=== PATIENT | male | born 1970 | race Caucasian/White ===

== ENCOUNTER → 2018-08-30 07:16 | Outpatient (CLI) | payer SELFPAY ==
--- NOTE | 2018-08-30 10:34 | NEURO ---
NCS and/or EMG Patient Report Ordering Doctor: Dahiana Holloway DATE OF SERVICE: 08/30/18 This is a right upper extremity EMG and nerve conduction study performed on this 48-year-old male who works as a dedicated intermodal truck driver. He complains of decreased traffic observer in his right hand as well as paresthesias in the fourth and fifth digits of his right hand. He also describes shoulder pain with specific shoulder movements but does not relate worsening of his abnormal hand sensations in association with shoulder pain. He is healthy otherwise without a history of diabetes. Right upper extremity sensory and motor nerve conduction study is performed demonstrating prolonged ulnar distal latency across the elbow with drop in amplitude across the elbow as well as conduction velocity. The ulnar sensory amplitude at the palm is decreased. The median motor and sensory and the radial sensory responses are normal. The ulnar f wave latency is prolonged compared to the median F wave latency. Right upper extremity needle electromyography is performed. Muscles evaluated included the first dorsal interosseous, abductor pollicis brevis, brachioradialis, biceps, triceps and deltoid muscles. All muscles demonstrated normal insertional activity with absence of pathologic spontaneous activity. Motor unit potential recruitment pattern and amplitude is normal in all muscles tested. Impression: This is an abnormal electrophysiologic study of the right upper extremity consistent with mild ulnar neuropathy at the elbow.
--- NOTE | 2018-08-30 10:37 | NEURO_ITS ---
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 He complains of decreased healthcare receptionist in his right hand as well as paresthesias in the fourth and fifth digits of his right hand. He also describes shoulder pain with specific shoulder movements but does not relate worsening of his abnormal hand sensations in association with shoulder pain. He is healthy otherwise without a history of diabetes. Right upper extremity sensory and motor nerve conduction study is performed demonstrating prolonged ulnar distal latency across the elbow with drop in amplitude across the elbow as well as conduction velocity. The ulnar sensory amplitude at the palm is decreased. The median motor and sensory and the radial sensory responses are normal. The ulnar f wave latency is prolonged compared to the median F wave latency. Right upper extremity needle electromyography is performed. Muscles evaluated included the first dorsal interosseous, abductor pollicis brevis, brachioradialis, biceps, triceps and deltoid muscles. All muscles demonstrated normal insertional activity with absence of pathologic spontaneous activity. Motor unit potential recruitment pattern and amplitude is normal in all muscles tested. Impression: This is an abnormal electrophysiologic study of the right upper extremity consistent with mild ulnar neuropathy at the elbow.
--- OUTSIDE RECORDS SUMMARY | 2018-10-16 02:29 | XMS RPT_ITS ---
:1970 Author Organization [facility] Care Team Providers Name Role Phone Dahiana Holloway Attending Unavailable Dahiana Holloway Referring Unavailable Primay Care Physicia, No Primary Care Unavailable PROBLEMS PROBLEMS No Problem Records FoundPROCEDURES PROCEDURES No Procedure Records FoundRESULTS RESULTS NCS AND/OR EMG Observed: 08/30/2018 Status: F Source: [place] PATIENT 10:38 AM [facility] REPOSITORY [facility] Pulmonary Services/Neurology [address] [place] [address] MR#: [id number] Acct: [id number] Name: JOSÉ MIGUEL KUMARI Rep #: [id number] : 1970 48 From: Shawn Watkins MD Referring Dr: Dahiana Holloway Status: REG CLI Ordering Dr: Date: Location: [facility] Sex: M C NCS and/or EMG Patient Report Ordering Doctor: Dahiana Holloway DATE OF SERVICE: 08/30/18 This is a right upper extremity EMG and nerve conduction study performed on this 48-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 He complains of decreased neuropsychology medical consultant in his right hand as well as paresthesias in the fourth and fifth digits of his right hand. He also describes shoulder pain with specific shoulder movements but does not relate worsening of his abnormal hand sensations in association with shoulder pain. He is healthy otherwise without a history of diabetes. Right upper extremity sensory and motor nerve conduction study is performed demonstrating prolonged ulnar distal latency across the elbow with drop in amplitude across the elbow as well as conduction velocity. The ulnar sensory amplitude at the palm is decreased. The median motor and sensory and the radial sensory responses are normal. The ulnar f wave latency is prolonged compared to the median F wave latency. Right upper extremity needle electromyography is performed. Muscles evaluated included the first dorsal interosseous, abductor pollicis brevis, brachioradialis, biceps, triceps and deltoid muscles. All muscles demonstrated normal insertional activity with absence of pathologic spontaneous activity. Motor unit potential recruitment pattern and amplitude is normal in all muscles tested. Impression: This is an abnormal electrophysiologic study of the right upper extremity consistent with mild ulnar neuropathy at the elbow. 08/30/18 1038 <Electronically signed by Shawn Watkins MD> Date Shawn Watkins MD CC: No Primary Care Physician; Dahiana Holloway; Shawn Watkins MD Date Dictated: 08/30/18 1034 Date Transcribed: 08/30/181033 Site Physician: NF Signed ALLERGIES ALLERGIES No Allergies Records FoundENCOUNTERS ENCOUNTERS ADMIT/DISCHARGE ACCOUNT ADMITTING ENCOUNTER LOCATION SOURCE NUMBER CLASS 08/30/2018 [id number] Ambulatory Stephanie Brown [address] [place] [address] ing:PSN Repository PAYERS PAYERS ENCOUNTER GUARANTOR PAYER SUBSCRIBER SOURCE 08/30/2018 JOSÉ MIGUEL E Primary NOT GIVENUNK Stephanie [id number] Insurance:SELF PAY [facility] [id number]: Number: Effective Repository Date:2018-08-04 ()
== END ==
PROVIDERS: Referring Provider Physician Assistant; Visit Provider Physician Assistant
DX: R20.2 Paresthesia of skin (principal); M79.641 Pain in right hand
CPT/HCPCS: 95886; 95910

== ENCOUNTER → 2019-01-16 11:00 | Outpatient (CLI) | payer SELFPAY ==
[2019-01-16 10:14] VITALS: BMI 42.0
[2019-01-16 12:12] LABS: Absolute Neutrophil Count 3.4 X10^3/uL (2.0-7.7); Basophil# 0.05 X10^3/uL; Basophil% 0.7 % (0-1); Eosinophil# 0.15 X10^3/uL; Eosinophils% 2.1 % (0-5); Hematocrit 47.4 % (40-54); Hemoglobin 15.6 g/dl (13.0-16.5); Lymphocyte % 39.8 % (19-41); Mean Corp Hgb Conc 32.9 g/gl (32-36); Mean Corpuscular Hgb 28.7 pg (27.0-32.0); Mean Corpuscular Volume 87.1 fL (80-94); Mean Platelet Vol. 11.1 fl (6.2-12.0); Monocyte# 0.61 X10^3/uL; Monocyte% 8.7 % (0-10); Neutrophil # 3.39 X10^3/uL (2.7-7.7); Neutrophil % 48.1 % (47-70); Platelet Count 227 K/mm3 (150-450); RBC Distribution Width CV 12.7 % (11.6-14.6); RBC Distribution Width SD 40.4 fl (35.1-43.9); Red Blood Count 5.44 M/mm3 (4.6-6.2)
[2019-01-16 12:13] LABS: POSITIVE COUNT NO; POSITIVE DIFFERENTIAL NO; POSITIVE MORPHOLOGY NO
[2019-01-16 12:23] LABS: ALB/GLOB Ratio 0.9 RATIO (0.9-2.4); AST(SGOT) 43 U/L (15-37); Alanine Aminotransfer ALT/SGPT 74 U/L (16-61); Albumin, Serum 3.4 g/dL (3.2-5.0); Alkaline Phosphatase 103 U/L (45-117); Anion Gap 7 (5-15); BUN 12 mg/dL (7-18); BUN/Creat Ratio 14.5 RATIO (10-20); Calcium,Total 8.4 mg/dL (8.5-10.1); Chloride 105 mmol/L (98-107); Cholesterol 142 mg/dL (200); Creatinine, Serum 0.83 mg/dL (0.70-1.30); EST Glomerular Filtration Rate 106 mL/min (>60); Est Glom Filt Rate - Afr Amer 128 mL/min (>60); Glucose 165 mg/dL (74-106); High Density Lipoprotein 22 mg/dL; Potassium 4.3 mmol/L (3.5-5.1); Protein, Total 7.4 g/dL (6.4-8.2); Sodium Level 138 mmol/L (136-145); Triglycerides 463 mg/dL; Very Low Density Lipoprotein 93 mg/dL (5-40)
[2019-01-16 12:44] LABS: Microalbumin,Random Urine 44.4 mg/L (NO RANGE EST.)
[2019-01-16 14:04] LABS: Hemoglobin A1c 11.2 % (4.2-6.3)
== END ==
PROVIDERS: Family Provider Internal Medicine; PCP Internal Medicine; Visit Provider Internal Medicine
DX: E11.9 Type 2 diabetes mellitus without complications (principal)
CPT/HCPCS: 36415; 80053; 80061; 82043; 82570; 83036; 85025

== ENCOUNTER → 2019-03-24 09:21 | Outpatient (CLI) | payer SELFPAY ==
[2019-02-15 17:12] VITALS: BMI 40.6
[2019-03-24 10:51] LABS: AST(SGOT) 17 U/L (15-37); Alanine Aminotransfer ALT/SGPT 33 U/L (16-61); Albumin, Serum 3.4 g/dL (3.2-5.0); Alkaline Phosphatase 68 U/L (45-117); Anion Gap 6 (5-15); BUN 15 mg/dL (7-18); BUN/Creat Ratio 19.9 RATIO (10-20); Calcium,Total 8.3 mg/dL (8.5-10.1); Chloride 110 mmol/L (98-107); Creatinine, Serum 0.75 mg/dL (0.70-1.30); EST Glomerular Filtration Rate 118 mL/min (>60); Est Glom Filt Rate - Afr Amer 143 mL/min (>60); Globulin 3.4 g/dL (2.2-4.2); Glucose 109 mg/dL (74-106); Protein, Total 6.8 g/dL (6.4-8.2); Sodium Level 142 mmol/L (136-145)
== END ==
PROVIDERS: Family Provider Internal Medicine; PCP Internal Medicine; Referring Provider Internal Medicine; Visit Provider Internal Medicine
DX: E78.5 Hyperlipidemia, unspecified (principal)
CPT/HCPCS: 36415; 80053